=== PATIENT | male | born 2000 | race Caucasian/White ===

== ENCOUNTER 2019-11-08 12:51 | Emergency (ER) | payer BC ==
[~2019-11-08] VITALS: Ht 185.4 cm; Wt 75.0 kg
[2019-11-08 13:02] VITALS: BP 142/72; TEMP 97
[2019-11-08] MEDS ORDERED: ZYRTEC 10MG10 MG PO (13:24)
[2019-11-08] MEDS ORDERED: FLONASEALLERGY NS (13:25)
[2019-11-08] MEDS ORDERED: ULTRAM 50MG TAB50 MG PO (14:18)
[2019-11-08] MEDS ORDERED: AMOXICILLIN 8751 TAB PO (14:18)
[2019-11-08 14:43] VITALS: PULSE 99
== END 2019-11-08 14:43 | disposition home or self-care (01) ==
LOC: COL.ER 12:51
DX: S02.85XA Fracture of orbit, unspecified, initial encounter for closed fracture (principal); Y09 Assault by unspecified means